=== PATIENT | male | born 1960 | race Caucasian/White ===

== ENCOUNTER 2024-09-01 07:37 | Day surgery (SDC) | payer BC ==
[2024-09-01] MEDS: IV FLUID CONTINUATION 1,000 ML IV ONE ×2 (08:01→13:56)
[2024-09-01 08:42] LABS: Basophils # (A) 0.12 10*3/uL (0.00-0.10); Basophils % (A) 1.7 %; Eosinophils # (A) 0.52 10*3/uL (0.04-0.35); Eosinophils % (A) 7.5 %; HGB 16.4 g/dL (13.0-17.0); Lymphocytes % (A) 34.8 %; MCH 31.4 pg (27.0-32.0); MCHC 34.9 g/dL (32.0-37.0); MCV 89.9 fL (80.0-97.0); Mean Platelet Volume 9.5 fL (9.5-12.2); Monocytes # (A) 0.73 10*3/uL (0.20-1.00); Monocytes % (A) 10.6 %; Neutrophils % (A) 45.1 %; Platelet Count 227 10*3/uL (140-440); RBC 5.23 10*6/uL (4.40-5.60); RDW 12.1 % (11.5-14.5); WBC 6.89 10*3/uL (4.50-10.00)
[2024-09-01] MEDS: LACTATED RINGERS 1,000 ML BAG IV STA (08:45)
[2024-09-01] MEDS: ONDANSETRON 4 MG/2 ML VIAL IVP STA (08:45)
[2024-09-01] MEDS: DEXAMETHASONE SOD PHOSPHATE 4 MG/ML 1 ML VIAL IVP STA (08:46)
[2024-09-01] MEDS: MIDAZOLAM 2 MG/2 ML VIAL IV ONE (08:54)
[2024-09-01] MEDS: HEPARIN SODIUM,PORCINE 5,000 UNIT/ML 1 ML VIAL SQ PRN (09:03)
[2024-09-01] MEDS ORDERED: GLYCOPYRROLATE 0.2 MG/ML 2 ML VIAL ONE (09:47)
[2024-09-01] MEDS ORDERED: SODIUM CHLORIDE 0.9% (PF) 10 ML VIAL ONE (09:47)
[2024-09-01] MEDS ORDERED: fentaNYL (PF) 50 MCG/ML 2 ML AMP ONE (09:47)
[2024-09-01] MEDS ORDERED: LIDOCAINE 1% INJ 10MG/ML (20 ML MDV) ONE (09:47)
[2024-09-01] MEDS ORDERED: PHENYLEPHRINE-0.9% NACL SYG 1,000 MCG/10 ML SYRINGE ONE (09:47)
[2024-09-01] MEDS ORDERED: SUCCINYLCHOLINE CHLORIDE 200 MG/10 ML VIAL IV ONE (09:47)
[2024-09-01] MEDS ORDERED: ROPIVACAINE 5 MG/ML 30 ML VIAL ONE (09:47)
[2024-09-01] MEDS ORDERED: HYDROmorphone (PF) 1 MG/ML ONE (09:47)
[2024-09-01] MEDS ORDERED: NEOSTIGMINE 1 MG/ML 10 ML VIAL ONE (09:47)
[2024-09-01] MEDS ORDERED: DEXAMETHASONE SOD PHOSPHATE 4 MG/ML 1 ML VIAL ONE (09:47)
[2024-09-01] MEDS ORDERED: ROCURONIUM 10 MG/ML (5 ML VIAL) IV ONE (09:47)
[2024-09-01] MEDS ORDERED: KETOROLAC 15 MG/ML 1 ML VIAL ONE (09:47)
[2024-09-01] MEDS ORDERED: PROPOFOL 10 MG/ML 20 ML VIAL IV ONE (09:47)
[2024-09-01] MEDS ORDERED: LIDOCAINE 4% LTA KIT (4 ML) TOPICAL ONE (09:47)
[2024-09-01] MEDS: LIDOCAINE 1%-EPI 1:100,000 20 ML VIAL SQ ONE (09:52)
[2024-09-01] MEDS: ceFAZolin 2 GM in DEXTROSE 5% IN WATER 50 ML IVPB PRN (09:52)
[2024-09-01 11:03] VITALS: TEMP 96.8
[2024-09-01] MEDS: TAMSULOSIN 0.4 MG CAP.ER.24H PO STA (14:23)
[2024-09-01 15:12] VITALS: BP 114/66; PULSE 57; RESP 14
--- NOTE | 2024-09-01 19:57 | P.OP ---
Date of Procedure: 09/01/24 Preoperative Diagnosis: Right inguinal hernia Postoperative Diagnosis: Right inguinal indirect hernia Procedure(s) Performed: Robotic right inguinal hernia repair with mesh placement Implants: ProGrip Mesh Anesthesia: RADHA Surgeon: Scotty Ugarte Pathology: none sent Condition: stable Disposition: same day Indications for Procedure: 64-year-old male presents with increasing right groin bulge and found to have right inguinal hernia. Plan is for robotic repair. Risks, benefits and alternatives were provided to the patient. All questions answered prior to attending the operating suite. Operative Findings: Right inguinal indirect hernia Description of Procedure: Patient was brought to the operative suite and placed in supine position on the operating table. Sedation was provided by anesthesia and the patient underwent endotracheal intubation. The patient was then prepped and draped in regular sterile fashion. Supraumbilical incision was made and dissection was carried to the fascia. The fascia was incised and an 8 mm trocar was placed. Pneumoperitoneum was achieved. Similarly two 8 mm trocars were placed 11 cm on either lateral side. The hernia was clearly noted on the right side and was noted to be an indirect inguinal hernia. The robot was then docked appropriately. Incision was then made just lateral to the medial umbilical ligament on the right side with the monopolar scissors and the peritoneal flap was created and was taken down towards Giancarlo's ligament. The flap was then extended laterally. Attention was then turned to the indirect inguinal hernia. The sac was then freed from the cord all while preserving the cord structures. At this point the indirect hernia was reduced. Once the entire space was appropriately dissected out, we brought the laparoscopic anatomic pariah Galindo P roGrip mesh and unrolled it over the hernia site. Once appropriate in place the peritoneal flap was closed using a running 2 OV lock suture. Once this was completed, we removed all robotic instruments and undocked the robot. The supraumbilical fascial incision was closed with 0 Vicryl suture using the Samson Dillard device. This was done under laparoscopic guidance. All skin incisions were then closed with 4-0 Vicryl subcuticular suture. Sterile dressing was applied. The patient was awakened and taken to postanesthesia care unit in stable condition.
--- NOTE | 2024-09-02 13:38 | P.ANPRN ---
Procedure Note - Anesthesia - Nerve Block Performed Bilateral Erector Spinae Single Time Out Performed: Yes Date of Procedure: 09/01/24 Procedure Start Time: 08:54 Procedure Stop Time: 09:00 Location of Patient: PreOp Indication: Acute Post-Operative Pain, Requested by Surgeon Sedation Type: Sedate with meaningful contact maintained Preparation: Sterile Prep Position: Prone Needle Types: Pajunk Needle Gauge: 21 Ultrasound used to visualize needle placement: Yes Ultrasound used to observe medication spread: Yes Blood Aspirated: No Pain Paresthesia on Injection Noted: No Resistance on Injection: Normal Image Stored and Saved: Yes Events: Uneventful and Well Tolerated (Ropivacaine 0.5% 20 cc plus normal saline 10 cc plus dexamethasone 4 mg given bilaterally at L1)
== END 2024-09-01 17:36 | disposition home or self-care (01) ==
LOC: OR 07:37
PROVIDERS: ATTEND Surgery
DX: K40.90 Unilateral inguinal hernia, without obstruction or gangrene, not specified as recurrent (principal); G89.18 Other acute postprocedural pain; E78.5 Hyperlipidemia, unspecified; E07.9 Disorder of thyroid, unspecified; Z79.890 Hormone replacement therapy; Z79.899 Other long term (current) drug therapy
CPT/HCPCS: 49650; S2900; 64468; 85025